=== PATIENT | female | born 1995 | race Caucasian/White ===

== ENCOUNTER 2017-03-04 20:29 | Inpatient (IN) | payer OTHER ==
[2017-03-04 21:12] LABS: ADD MAN DIFF? NO
[2017-03-04 21:16] LABS: ABNORMAL IP MESSAGE 1; BASOPHILS % 0.1 % (0.0-2.0); EOSINOPHILS % 0.4 % (0.0-7.0); HEMATOCRIT 41.9 % (37.0-47.0); HEMOGLOBIN 13.7 g/dl (12.0-16.0); LYMPHOCYTES # 2.1 10^3/ul (0.8-2.9); LYMPHOCYTES % 18.8 % (18.0-55.0); MEAN CORPUSCULAR HEMOGLOBIN 27.8 pg (29.0-33.0); MEAN CORPUSCULAR HGB CONC 32.7 g/dl (32.0-37.0); MEAN PLATELET VOLUME 13.6 fl (7.4-10.4); MONOCYTE # 0.6 10^3/ul (0.3-0.9); MONOCYTES % 5.7 % (0.0-13.0); NEUTROPHIL # 8.2 10^3/ul (1.6-7.5); NEUTROPHILS % 74.5 % (30.0-74.0); PLATELET COUNT 190 10^3/UL (140-415); RED BLOOD COUNT 4.93 10^6/ul (4.20-5.40); RED CELL DISTRIBUTION WIDTH 15.8 % (11.5-14.5)
[2017-03-04 21:16] LABS: WHITE BLOOD COUNT 10.9 10^3/ul (4.8-10.8)
[2017-03-04 21:30] LABS: INR 0.92; PROTIME 12.4 Sec (11.9-14.9)
[2017-03-04] MEDS ORDERED: METHYLERGONOVINE 0.2 MG INJ IM (21:30)
[2017-03-04] MEDS ORDERED: OXYTOCIN 30 UNITS/LR 500 ML IV ×2 (21:30)
[2017-03-04] MEDS ORDERED: HYDROCODONE/APAP (5/325) TAB PO (21:30)
[2017-03-04] MEDS ORDERED: LIDOCAINE 1% (MPF) 30 ML INJ INJ (21:30)
[2017-03-04] MEDS ORDERED: CARBOPROST 250 MCG INJ IM (21:30)
[2017-03-04] MEDS ORDERED: MISOPROSTOL 200 MCG TAB PR (21:30)
[2017-03-04] MEDS ORDERED: BUTORPHANOL 2 MG INJ IV ×2 (21:30)
[2017-03-04] MEDS ORDERED: LACTATED RINGER'S 500 ML IV (21:30)
[2017-03-04] MEDS: LACTATED RINGER'S 1,000 ML IV ×2 (21:31→23:10)
[2017-03-04 21:32] LABS: PARTIAL THROMBOPLASTIN TIME 26.6 Sec (25.0-35.0)
[2017-03-04 21:35] LABS: POSITIVE DIFF @See below
[2017-03-04] MEDS: OXYTOCIN 30 UNITS/LR 500 ML IV (21:57)
[2017-03-04] MEDS ORDERED: FENTAnyl 2MCG/ML-ROPIV 0.2% 100 ML (23:53)
[2017-03-05] MEDS ORDERED: HYDROmorphONE 0.5 MG/0.5 ML SYG IV
[2017-03-05] MEDS: LACTATED RINGER'S 1,000 ML IV ×3 (02:06→09:01)
[2017-03-05] MEDS: ACETAMINOPHEN 325 MG TAB PO ×2 (07:01→14:05)
[2017-03-05] MEDS: AMPICILLIN 2 GM/NS (PMX) 100 ML IV (07:06)
[2017-03-05] MEDS ORDERED: FENTAnyl 2MCG/ML-ROPIV 0.2% 100 ML BAG EPI (08:30)
[2017-03-05] MEDS ORDERED: DIPHENHYDRAMINE 50 MG INJ IV ×2 (08:30)
[2017-03-05] MEDS ORDERED: ONDANSETRON 4 MG INJ IV ×3 (08:30→14:30)
[2017-03-05] MEDS ORDERED: NALOXONE (0.4 MG/ML) INJ IV ×2 (08:30)
[2017-03-05] MEDS: MINERAL OIL LIGHT 10 ML VIAL TOP (09:14)
[2017-03-05] MEDS: OXYTOCIN 30 UNITS/LR 500 ML IV ×2 (09:58→15:13)
[2017-03-05] MEDS: AMPICILLIN 1 GM/NS (PMX) 50 ML IVPB ×3 (11:04→22:57)
[2017-03-05] MEDS ORDERED: OXYCODONE/ASPIRIN (4.88/325) TAB PO ×2 (14:30)
[2017-03-05] MEDS ORDERED: ACETAMINOPHEN 325 MG TAB PO (14:30)
[2017-03-05] MEDS ORDERED: MISOPROSTOL 200 MCG TAB PR (14:30)
[2017-03-05] MEDS ORDERED: CARBOPROST 250 MCG INJ IM (14:30)
[2017-03-05] MEDS ORDERED: HYDROCODONE/APAP (5/325) TAB PO (14:30)
[2017-03-05] MEDS ORDERED: METHYLERGONOVINE 0.2 MG INJ IM (14:30)
[2017-03-05] MEDS ORDERED: OXYTOCIN 30 UNITS/LR 500 ML IV (14:30)
[2017-03-05 14:55] LABS: RAPID PLASMA REAGIN NONREACTIVE (NR)
[2017-03-05] MEDS: BENZOCAINE 20% 56 ML SPRAY TOP (17:43)
[2017-03-05] MEDS: WITCH HAZEL/GLYCERIN PAD PR (17:43)
[2017-03-05] MEDS: LANOLIN 7 GM TUBE TOP (17:44)
[2017-03-05] MEDS: DIBUCAINE 1% 30 GM OINT PR (17:44)
[2017-03-05] MEDS: SENNA/DOCUSATE NA (8.6MG/50MG) TAB PO (20:37)
[2017-03-06] MEDS: AMPICILLIN 1 GM/NS (PMX) 50 ML IVPB ×2 (02:44→06:34)
[2017-03-06 08:47] LABS: ADD MAN DIFF? NO
[2017-03-06 08:51] LABS: ABNORMAL IP MESSAGE 1; BASOPHILS % 0.2 % (0.0-2.0); EOSINOPHILS # 0.2 10^3/ul (0.0-0.5); EOSINOPHILS % 1.1 % (0.0-7.0); HEMOGLOBIN 11.2 g/dl (12.0-16.0); LYMPHOCYTES # 2.9 10^3/ul (0.8-2.9); LYMPHOCYTES % 20.5 % (18.0-55.0); MEAN CORPUSCULAR HEMOGLOBIN 27.9 pg (29.0-33.0); MEAN CORPUSCULAR HGB CONC 32.9 g/dl (32.0-37.0); MEAN CORPUSCULAR VOLUME 84.8 fl (72.0-104.0); MEAN PLATELET VOLUME 13.5 fl (7.4-10.4); NEUTROPHIL # 9.9 10^3/ul (1.6-7.5); NEUTROPHILS % 70.8 % (30.0-74.0); PLATELET COUNT 148 10^3/UL (140-415); RED BLOOD COUNT 4.01 10^6/ul (4.20-5.40); RED CELL DISTRIBUTION WIDTH 16.2 % (11.5-14.5)
[2017-03-06 08:57] LABS: POSITIVE DIFF @See below
[2017-03-06] MEDS: SENNA/DOCUSATE NA (8.6MG/50MG) TAB PO ×2 (09:19→21:36)
[2017-03-06] MEDS: INFLUENZA VIRUS VACCINE 0.5 ML (DISPENSING) IM* (09:20)
[2017-03-06] MEDS: HYDROCODONE/APAP (5/325) TAB PO (21:37)
[2017-03-07] MEDS: SENNA/DOCUSATE NA (8.6MG/50MG) TAB PO (08:32)
[2017-03-07] MEDS: MEASLES,MUMPS,RUBELLA VACCINE INJ SC* (09:00)
== END 2017-03-07 15:55 | disposition home or self-care (01) | DRG 775 ==
LOC: OBT 20:29 → PP1 03-05 15:55 → L-D 20:33
PROVIDERS: Obstetrics & Gynecology
PROC: 10E0XZZ Delivery of Products of Conception, External Approach (ICD-10-PCS; principal; 2017-03-04)
PROC: 0HQ9XZZ Repair Perineum Skin, External Approach (ICD-10-PCS; 2017-03-04)
PROC: 3E033VJ Introduction of Other Hormone into Peripheral Vein, Percutaneous Approach (ICD-10-PCS; 2017-03-04)
DX: O70.0 First degree perineal laceration during delivery (principal); Z37.0 Single live birth; Z3A.38 38 weeks gestation of pregnancy
CPT/HCPCS: 62319; 82962; 85025; 85610; 85730; 86592; 86900; 86901; 90686; 99464